=== PATIENT | female | born 1955 | race Caucasian/White ===

== ENCOUNTER → 2020-11-03 | Outpatient (CLI) | payer MEDICARE, MEDICAID ==
[~2020-11-03] MED LIST: RT-ALBUTEROL SULF 2.5 MG/3 ML PRE-MIX VIAL INH ONE
--- NOTE | 2020-11-03 10:44 | Diagnostic Imaging Report ---
INDICATION: CHRONIC OBSTRUCTIVE LUNG DISEASE. TECHNIQUE: Two view chest 9:58 AM CORRELATION STUDY: None FINDINGS: The heart size, mediastinal configuration and pulmonary vasculature are within normal limits. Lung machado are hyperinflated with hyperlucency at the lung apices. Flattening of the diaphragms increased retrosternal dimension. Mildly prominent interstitial markings, however, no consolidating infiltrate. Slightly accentuated thoracic kyphosis with degenerative changes of the thoracic spine. IMPRESSION: 1. COPD. Negative for acute cardiopulmonary abnormality. Dictated by: Dictated on workstation # [id number]
== END ==
LOC: RT 09:30
PROVIDERS: ATTEND Nurse Practitioner Family
DX: J44.9 Chronic obstructive pulmonary disease, unspecified (principal)
CPT/HCPCS: 71046; 94060; 94726; 94729

== ENCOUNTER → 2020-12-08 | Outpatient (CLI) | payer MEDICARE, MEDICAID ==
--- NOTE | 2020-12-08 15:35 | Diagnostic Imaging Report ---
Procedure: CT right lower extremity without contrast. Technique: Axially acquired CT was obtained through the right lower extremity without intravenous contrast. Coronal and sagittal reformations were also performed. Auto Exposure Controls were utilized during the CT exam to meet ALARA standards for radiation dose reduction. Date: December 08, 2020. Indication: 65-year-old female, right hip pain. Comparison: None. Findings: The right hip is not dislocated. There is no joint space loss of the right hip, osteophyte formation, or subchondral cystic change. There is no acute fracture. There is no identified bone lesion. The right sacroiliac joint is unremarkable in appearance. There are at least right facet degenerative changes at L4-L5 and L5-S1. There are atherosclerotic calcifications. Impression: 1. Unremarkable appearance of the right hip joint. 2. No identified acute bony abnormality. 3. At least right-sided facet degenerative changes present at L4-L5 and L5-S1. Dictated by: Dictated on workstation # [id number]
== END ==
LOC: RAD 14:45
PROVIDERS: ATTEND Family Medicine
DX: M47.816 Spondylosis without myelopathy or radiculopathy, lumbar region (principal); M47.817 Spondylosis without myelopathy or radiculopathy, lumbosacral region
CPT/HCPCS: 73700

== ENCOUNTER 2022-01-25 05:39 | Outpatient (CLI) | payer MEDICARE, MEDICAID ==
[~2022-01-25] VITALS: Ht 172.7 cm; Wt 112.9 kg
[2022-01-27] MEDS ORDERED: PANT20TA18 PO (09:31)
[2022-01-27] MEDS ORDERED: FLUO40CA PO (09:31)
[2022-01-27] MEDS ORDERED: AMIT50TA3 PO (09:31)
[2022-01-27] MEDS ORDERED: FAMO20TA3 PO (09:31)
[2022-01-27] MEDS ORDERED: ACHD5005 PO (09:32)
[2022-01-27] MEDS ORDERED: OXYB5TAB13 PO (09:32)
[2022-01-27] MEDS ORDERED: RT-ALBUINH INH (09:32)
[2022-01-27] MEDS ORDERED: FLUT1BLS15 IH (09:32)
[2022-01-27] MEDS ORDERED: HYDR-700 PO (09:32)
== END 2022-01-27 09:33 | disposition home or self-care (01) ==
LOC: PREOP 05:39
PROVIDERS: ATTEND Surgery
DX: Z01.818 Encounter for other preprocedural examination (principal)

== ENCOUNTER 2022-02-01 06:58 | Day surgery (SDC) | payer MEDICARE, MEDICAID ==
[~2022-02-01] VITALS: Ht 172.7 cm; Wt 112.9 kg
[~2022-02-01 06:58] MED LIST changes: +ACHD5005 PO; +AMIT50TA3 PO; +FAMO20TA3 PO; +FLUO40CA PO; +FLUT1BLS15 IH; +HYDR-700 PO; +OXYB5TAB13 PO; +PANT20TA18 PO; +RT-ALBUINH INH; -RT-ALBUTEROL SULF 2.5 MG/3 ML PRE-MIX VIAL INH ONE
[2022-02-01] MEDS ORDERED: LACTATED RINGERS 1,000 ML IV STA (07:14)
[2022-02-01] MEDS ORDERED: HURRICAINE EXT TUBE (BENZOCAINE) XX PRN (07:15)
[2022-02-01 07:24] VITALS: BP 169/82
[2022-02-01] MEDS ORDERED: PROPOFOL INJECTION 50 ML IV ONE (07:37)
--- NOTE | 2022-02-01 09:03 | Anesthesia-General Post-Op ---
MAC Patient Condition Mental Status/LOC: Same as Preop Cardiovascular: Satisfactory Nausea/Vomiting: Absent Respiratory: Satisfactory Pain: Controlled Complications: Absent Post Op Complications Complications None Follow Up Care/Instructions Patient Instructions None needed. Anesthesiology Discharge Order Discharge Order Patient is doing well, no complaints, stable vital signs, no apparent adverse anesthesia problems. No complications reported per nursing. JUDY GUARDADO CRNA Feb 01, 2022 09:03
--- NOTE | 2022-02-01 09:07 | Discharge Inst-Simple/Standard ---
Discharge Inst-Standard Patient Instructions/Follow Up Plan of Care/Instructions/FU: See Dr. Menard in 2 weeks Activity as Tolerated: Yes Discharge Diet: Regular Diet LUTHER MENARD DO Feb 01, 2022 09:07
[2022-02-01 09:08] VITALS: BP 166/88
[2022-02-01 09:15] VITALS: BP 167/71
[2022-02-01 09:49] VITALS: BP 167/71
--- NOTE | 2022-02-01 14:00 | OPERATIVE REPORT ---
DATE OF SERVICE: 02/01/2022 PREOPERATIVE DIAGNOSIS: Gastroesophageal reflux disease. POSTOPERATIVE DIAGNOSIS: Small hiatal hernia. PROCEDURES PERFORMED: EGD with biopsy. SURGEON: Luther Menard DO. ANESTHESIA: Per RELIEF MATE. ESTIMATED BLOOD LOSS: None. COMPLICATIONS: None. INDICATIONS FOR PROCEDURE: The patient is a 66-year-old female having worsening GERD symptoms. She understands the risks and benefits of the procedure and wishes to proceed. Consent was signed in chart. DESCRIPTION OF PROCEDURE: The patient was taken to endoscopy suite and placed in the left lateral recumbent position. A timeout was performed. Scope was turned to the mouth, down the esophagus, stomach and into the duodenum without difficulty. No polyps, masses or ulcerations within the duodenum. Scope was then slowly retracted back in the stomach, where it was further insufflated. No masses or ulcerations. Small benign-appearing polyp. Very small hiatal hernia. Scope was returned to its normal position. Sludge on the distal esophagus. Biopsy of GE junction was obtained. Scope was slowly retracted back until completely removed noting no other pathology. The patient tolerated the procedure well without any complications. She was taken to recovery room in a stable condition. POSTOPERATIVE PLAN: The patient will continue on pantoprazole and famotidine as prescribed. Would consider changing area of symptoms control. We will change Protonix to 40 mg daily. Await biopsy results. The patient will follow up in two weeks. Job ID: [id number] DocumentID: [id number] Dictated Date: 02/01/2022 09:06:47 Change Control Coordinator Date: 02/01/2022 14:00:00 Dictated By: LUTHER MENARD DO
== END 2022-02-01 09:49 | disposition home or self-care (01) ==
LOC: ENDO 06:58
PROVIDERS: ATTEND Surgery
DX: K44.9 Diaphragmatic hernia without obstruction or gangrene (principal); K31.89 Other diseases of stomach and duodenum; K21.00 Gastro-esophageal reflux disease with esophagitis, without bleeding; K29.70 Gastritis, unspecified, without bleeding; Z79.899 Other long term (current) drug therapy; Z87.891 Personal history of nicotine dependence
CPT/HCPCS: 88305

== ENCOUNTER 2022-05-24 09:20 | Emergency (ER) | payer MEDICARE, MEDICAID ==
[~2022-05-24] VITALS: Ht 174 cm; Wt 111.0 kg
--- NOTE | 2022-05-24 09:58 | ED Fall/Injury ---
General Chief Complaint: Trauma-Non Activation Stated Complaint: LT HIP INJ | FALL AT HOME Nursing Triage Note: pt states fall 2 days ago, lt hip and thigh pain. denies any other pain. pt was leaning over picking stuff up and lost her balance and fell over "in slow motion." Source: patient, family Exam Limitations: no limitations History of Present Illness Date Seen by Provider: May 24, 2022 Time Seen by Provider: 09:47 Initial Comments This 66-year-old woman presents to the emergency room with primary complaint of pain in the left groin and hip area that she noticed after having a fall in her home 2 days ago. She was bending over to pick things up off the floor. She was leaning on her bed and lost her balance. She had a slow nontraumatic fall onto her hands and knees. The pain is primarily in the left groin and hip joint region but radiates to the buttock and sometimes down her leg. She has had hip arthritis and a right hip replacement has been recommended to her in the past. She has not proceeded with surgery due to her other comorbidities, namely COPD. She has suspected osteoporosis and has a pending bone density scan scheduled. Patient has been ambulatory since the fall but walking is becoming increasingly difficult. Allergies and Home Medications Allergies Coded Allergies: sulfamethoxazole (Unverified Allergy, Intermediate, Hives, 11/03/20) gabapentin (Unverified Adverse Reaction, Intermediate, 11/03/20) makes her drunk benzonatate (Unverified Adverse Reaction, Mild, 11/03/20) make her dream Patient Home Medication List Home Medication List Reviewed: Yes Albuterol Sulfate (Ventolin Hfa) 1 Puff Puff, 2 PUFF INH Q4H, (Reported) Entered as Reported by: PINO GARCIA on 01/27/22 0932 Amitriptyline HCl (Amitriptyline HCl) 50 Mg Tablet, 50 MG PO, (Reported) Entered as Reported by: PINO GARCIA on 01/27/22 0931 Cephalexin (Cephalexin) 500 Mg Tablet, 500 MG PO QID Prescribed by: DYLAN RICHARD on 05/24/22 1330 Famotidine (Acid Veneer Slicing Machine Operator (FAMOTIDINE)) 20 Mg Tablet, 20 MG PO BID, (Reported) Entered as Reported by: PINO GARCIA on 01/27/22 0931 Fluoxetine HCl (Fluoxetine HCl) 40 Mg Capsule, 40 MG PO, (Reported) Entered as Reported by: PINO GARCIA on 01/27/22930 Fluticasone/Umeclidin/Vilanter (Trelegy Ellipta 200-62.5-25) 200-62.5 Blst.w.dev, 1 EACH IH, (Reported) Entered as Reported by: PINO GARCIA on 01/27/22931 Hydrocodone/Acetaminophen (Hydrocodone-Acetamin 5-325 mg) 5 Mg-325 Mg Tablet, 1 TAB PO Q4H PRN for PAIN-MODERATE (5-7), (Reported) Entered as Reported by: PINO GARCIA on 01/27/22931 Hydroxyzine HCl (Hydroxyzine HCl) 25 Mg Tablet, 25 MG PO, (Reported) Entered as Reported by: PINO GARCIA on 01/27/22931 Oxybutynin Chloride (Oxybutynin Chloride) 5 Mg Tablet, 5 MG PO, (Reported) Entered as Reported by: PINO GARCIA on 01/27/22931 Oxycodone HCl/Acetaminophen (Percocet 5-325 mg Tablet) 1 Each Tablet, 1 TAB PO Q4H PRN for PAIN BREAKTROUGH Prescribed by: DYLAN RICHARD on 05/24/22 1342 Pantoprazole Sodium (Pantoprazole Sodium) 20 Mg Tablet.dr, 20 MG PO DAILY, (Reported) Entered as Reported by: PINO GARCIA on 01/27/22930 Prednisone (Prednisone) 20 Mg Tab, 40 MG PO DAILY Prescribed by: DYLAN RICHARD on 05/24/22 1330 Valacyclovir HCl (Valacyclovir) 1,000 Mg Tablet, 1,000 MG PO TID Prescribed by: DYLAN RICHARD on 05/24/22 1343 Review of Systems Review of Systems Constitutional: no symptoms reported Eyes: No Symptoms Reported Ears, Nose, Mouth, Throat: no symptoms reported Respiratory: no symptoms reported Cardiovascular: no symptoms reported Gastrointestinal: no symptoms reported Genitourinary: no symptoms reported Musculoskeletal: see HPI Skin: no symptoms reported Psychiatric/Neurological: No Symptoms Reported Past Zwcdsqq-Gozyut-Lrldgc Hx Patient Social History Tobacco Use?: Yes Smoking Status: Former Smoker Substance use?: No Alcohol Use?: No Immunizations Up To Date First/Initial COVID19 Vaccinat: YES Second COVID19 Vaccination Peter: YES Third COVID19 Vaccination Date: 2ND BOOSTER Seasonal Allergies Seasonal Allergies: No Past Medical History Surgery/Hospitalization HX: copd, asthma, bronchitis, home O2, kelsie, tubal ligation Surgeries: Yes Gallbladder, Tubal Ligation Respiratory: Yes COPD Cardiac: No 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 oz. kg; 36.00 BMI Method: General Appearance: WD/WN, no apparent distress, obese HEENT: normal ENT inspection Neck: normal inspection Cardiovascular: regular rate, rhythm, no edema, no murmur Respiratory: no respiratory distress, no accessory muscle use, wheezing Gastrointestinal: non tender, soft Extremities: normal inspection, other (Tenderness in the right groin over the hip joint. No significant pain with rotation of the hip. No significant pain with palpation of other areas of the extremity. Patient indicates the pain does radiate into the lumbar region during exam. 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 II-XII nml as tested, alert, normal mood/affect, oriented x 3 Skin: normal color, warm/dry Progress/Results/Core Measures Results/Orders My Orders Orders - DYLAN MURRY MD Pelvis With Left Hip 2-3 Views (05/24/22 09:56) Hydrocodone/Apap 5/325 Tablet (Lortab 5 (05/24/22 11:00) Ct Lumbar Spine Wo (05/24/22 11:17) Ct Pelvis Wo (05/24/22 11:17) Albuterol Inhaler (Albuterol) (05/24/22 11:18) Oxycodone/Apap 5/325mg Tablet (Percocet (05/24/22 13:30) Medications Given in ED Vital Signs/I&O 05/24/22 05/24/22 05/24/22 05/24/22 09:24 11:01 13:26 13:56 Temp 36.2 36.2 36.2 36.2 Pulse 107 107 Resp 22 20 B/P (MAP) 165/115 (132) 150/105 Pulse Ox 93 93 O2 Delivery Nasal Cannula Nasal Cannula O2 Flow Rate 3.00 3.00 3.00 Blood Pressure Mean: 132 Progress Progress Note : Progress Note Patient was treated with hydrocodone. X-rays of the left hip and pelvis were obtained. No fractures were identified. These images were reviewed and interpreted by me. No fractures or dislocations were appreciated. Radiologist's report was also reviewed and noted no acute bony injury. Since there is no explanation for the patient's pain, CT was offered for further evaluation. Patient requested to proceed with CT scan as she desired a definitive answer regarding any bony injuries. She was also noted to be wheezing and was given an albuterol inhaler as she was missing her home breath ing treatments while being in the ER. CT imaging revealed no acute injuries. Patient later described in more detail a radicular type pain that shoots all the way down her leg. This brought into question lumbar radiculopathy from lumbar disc disease or neuroforaminal stenosis or possibly a sciatica or piriformis syndrome. We discussed possibly using steroids which she requested to pursue. Prescriptions were provided. Percocet was given for further pain control before discharge. Patient had a unusual patchy raised erythematous rash on the anterior left thigh. It was neither painful nor itchy. There was a lymph node noted in the left groin on CT scan. This raises the question of developing cellulitis versus shingles. Patient was provided a prescription of antibiotics and valacyclovir to take should this rash worsen or become painful. Diagnostic Imaging Diagonstic Imaging: Xray Plain Films/CT/US/NM/MRI: pelvis, hip Comments NAME: FAWAD JOSE [facility] REC#: [id number] PT STATUS: REG ER : 1955 PHYSICIAN: DYLAN MURRY MD ADMIT DATE: 05/24/22/ER Signed Date of Exam:05/24/22 PELVIS WITH LEFT HIP 2-3 VIEWS PELVIS WITH LEFT HIP 2-3 VIEWS INDICATION: Left hip pain COMPARISON: None available. TECHNIQUE: AP pelvis with AP and lateral views of the hip. FINDINGS: No acute fracture about the left hip. No displaced fracture within the pelvis. Moderate osteoarthritis of right hip. No degenerative structural changes about the left hip. No abnormal soft tissue mineralization. IMPRESSION: No acute osseous abnormality about the left hip. Dictated by: Dictated on workstation # [id number] Dict: 05/24/22 1017 Trans: 05/24/22 1138 KAYLI [id number] Interpreted by: MOIZ LEWIS MD Electronically signed by: MOIZ LEWIS MD 05/24/22 1138 Diagonstic Imaging: CT Plain Films/CT/US/NM/MRI: other (Lumbar spine) Comments NAME: FAWAD JOSE [employer] REC#: [id number] PT STATUS: REG ER : 1955 PHYSICIAN: DYLAN MURRY MD ADMIT DATE: 05/24/22/ER Signed Date of Exam:05/24/22 PELVIS WITH LEFT HIP 2-3 VIEWS PELVIS WITH LEFT HIP 2-3 VIEWS INDICATION: Left hip pain COMPARISON: None available. TECHNIQUE: AP pelvis with AP and lateral views of the hip. FINDINGS: No acute fracture about the left hip. No displaced fracture within the pelvis. Moderate osteoarthritis of right hip. No degenerative structural changes about the left hip. No abnormal soft tissue mineralization. IMPRESSION: No acute osseous abnormality about the left hip. Dictated by: Dictated on workstation # [id number] Dict: 05/24/22 1017 Trans: 05/24/22 1138 KAYLI [id number] Interpreted by: MOIZ LEWIS MD Electronically signed by: MOIZ LEWIS MD 05/24/22 1138 Diagonstic Imaging: CT Plain Films/CT/US/NM/MRI: pelvis Comments NAME: FAWAD JOSE [employer] REC#: [id number] PT STATUS: REG ER : 1955 PHYSICIAN: DYLAN MURRY MD ADMIT DATE: 05/24/22/ER Signed Date of Exam:05/24/22 CT PELVIS WO PROCEDURE: CT pelvis without contrast. TECHNIQUE: Multiple contiguous axial images were obtained through the pelvis without the use of intravenous contrast. Sagittal and coronal reformations were performed. Auto Exposure Controls were utilized during the CT exam to meet ALARA standards for radiation dose reduction. INDICATION: Fall. Pelvic pain. Left hip pain. COMPARISON: None. FINDINGS: No acute fracture or dislocation in the pelvis and bilateral hips. Alignment is anatomic. No focal osseous lesions are seen. No evidence of joint effusion. The included pelvis is unremarkable. The included loops of bowel are nondistended. Nonspecific mildly prominent lymph nodes are seen in the left inguinal region. IMPRESSION: 1. No acute fracture or dislocation in the pelvis and bilateral hips. 2. Nonspecific mildly prominent lymph nodes in the left inguinal region. These are favored to be reactive. Dictated by: Dictated on workstation # [id number] Dict: 05/24/22 1157 Trans: 05/24/22 1205 [id number] [id number] Interpreted by: CANDICE VINCENT DO Electronically signed by: CANDICE VINCENT DO 05/24/22 1205 Departure Impression Primary Impression: Fall on same level Qualified Codes: W18.30XA - Fall on same level, unspecified, initial encou nter Additional Impressions: Left hip pain Rash Radiculopathy Qualified Codes: M54.10 - Radiculopathy, site unspecified COPD (chronic obstructive pulmonary disease) Qualified Codes: J44.9 - Chronic obstructive pulmonary disease, unspecified Disposition: 01 HOME, SELF-CARE Condition: Improved Departure-Patient Inst. Decision time for Depature: 13:22 Referrals: KAIDEN RECIO MD (PCP/Family) Primary Care Physician Patient Instructions: Radiculopathy, Hip Pain Add. Discharge Instructions: The cause of your hip pain is likely related to problems with nerve impingement at your lower back. Use prednisone as prescribed to help reduce inflammation that causes nerve impingement. Take prednisone early in the day to avoid sleep disturbance and with food or milk to avoid stomach upset. Use Percocet as prescribed for pain not controlled by ibuprofen. Use ibuprofen up to 600 mg every 6 hours as needed for primary pain control. Take Percocet with caution as it may cause drowsiness. Do not drive, operate machinery, or make important decisions while on Percocet. Percocet may also cause constipation, so you may wish to use a stool softener such as Colace while taking it. Follow-up with your primary care provider as soon as possible. The cause of your rash is uncertain. If it becomes painful or is rapidly spr eading, start the antibiotics and antivirals as prescribed. Return to care if you have worsening symptoms, especially if you develop numbness of the groin, loss of muscle strength in your legs, problems controlling bowel or bladder function, or escalating pain not responsive to the medications. All discharge instructions reviewed with patient and/or family. Voiced understanding. Scripts Valacyclovir HCl (Valacyclovir) 1,000 Mg Tablet 1000 MG PO TID, #21 TAB Prov: DYLAN MURRY MD 05/24/22 Oxycodone HCl/Acetaminophen (Percocet 5-325 mg Tablet) 1 Each Tablet 1 TAB PO Q4H PRN for PAIN BREAKTROUGH MDD 6 TABS, #10 TAB Prov: DYLAN MURRY MD 05/24/22 Prednisone (Prednisone) 20 Mg Tab 40 MG PO DAILY, #8 TAB 0 Refills Prov: DYLAN MURRY MD 05/24/22 Cephalexin (Cephalexin) 500 Mg Tablet 500 MG PO QID, #28 TAB Prov: DYLAN MURRY MD 05/24/22 Copy Copies To 1: KAIDEN RECIO MD, JOSHUA T MD May 24, 2022 09:57
--- NOTE | 2022-05-24 10:21 | Diagnostic Imaging Report ---
PELVIS WITH LEFT HIP 2-3 VIEWS INDICATION: Left hip pain COMPARISON: None available. TECHNIQUE: AP pelvis with AP and lateral views of the hip. FINDINGS: No acute fracture about the left hip. No displaced fracture within the pelvis. Moderate osteoarthritis of right hip. No degenerative structural changes about the left hip. No abnormal soft tissue mineralization. IMPRESSION: No acute osseous abnormality about the left hip. Dictated by: Dictated on workstation # [id number]
[2022-05-24] MEDS ORDERED: HYDROcodone/APAP 5 MG/325 MG (LORTAB) TAB PO ONE (11:00)
[2022-05-24] MEDS ORDERED: RT-ALBUTEROL HFA 8.5 GM INHALER IH STA (11:18)
--- NOTE | 2022-05-24 11:59 | Diagnostic Imaging Report ---
PROCEDURE: CT lumbar spine without contrast. TECHNIQUE: Multiple contiguous axial images were obtained through the lumbar spine without the use of intravenous contrast. Sagittal and coronal reformations were then performed. Auto Exposure Controls were utilized during the CT exam to meet ALARA standards for radiation dose reduction. INDICATION: Fall. Back pain. COMPARISON: None. FINDINGS: No acute fracture or dislocation in the lumbar spine. There is grade 1 anterolisthesis of L4-L5. No suspicious focal osseous lesions are seen. Vertebral body heights are well-maintained. No evidence of acute spinal canal stenosis. No high density material is within the spinal canal. The paraspinal soft tissues are unremarkable. IMPRESSION: 1. No acute fracture or dislocation in the lumbar spine. 2. Grade 1 anterolisthesis of L4 on L5. Dictated by: Dictated on workstation # [id number]
--- NOTE | 2022-05-24 12:05 | Diagnostic Imaging Report ---
PROCEDURE: CT pelvis without contrast. TECHNIQUE: Multiple contiguous axial images were obtained through the pelvis without the use of intravenous contrast. Sagittal and coronal reformations were performed. Auto Exposure Controls were utilized during the CT exam to meet ALARA standards for radiation dose reduction. INDICATION: Fall. Pelvic pain. Left hip pain. COMPARISON: None. FINDINGS: No acute fracture or dislocation in the pelvis and bilateral hips. Alignment is anatomic. No focal osseous lesions are seen. No evidence of joint effusion. The included pelvis is unremarkable. The included loops of bowel are nondistended. Nonspecific mildly prominent lymph nodes are seen in the left inguinal region. IMPRESSION: 1. No acute fracture or dislocation in the pelvis and bilateral hips. 2. Nonspecific mildly prominent lymph nodes in the left inguinal region. These are favored to be reactive. Dictated by: Dictated on workstation # [id number]
[2022-05-24] MEDS ORDERED: OXYC1TAB87 PO ×5 (13:30→13:41)
[2022-05-24] MEDS ORDERED: CEPH500T PO (13:30)
[2022-05-24] MEDS ORDERED: oxyCODONE/APAP 5/325MG (PERCOCET 5) TABLET PO ONE (13:30)
[2022-05-24] MEDS ORDERED: PRD20T PO (13:30)
[2022-05-24] MEDS ORDERED: OXYC-199 PO (13:31)
[2022-05-24] MEDS ORDERED: OXYC1TAB11 PO (13:34)
[2022-05-24] MEDS ORDERED: VALA10007 PO (13:43)
[2022-05-24 13:56] VITALS: BP 150/105
== END 2022-05-24 13:54 | disposition home or self-care (01) ==
LOC: EDUNIT# 09:20 → ER 09:22
DX: M25.552 Pain in left hip (principal); M54.10 Radiculopathy, site unspecified; R21 Rash and other nonspecific skin eruption; J44.9 Chronic obstructive pulmonary disease, unspecified; Z99.81 Dependence on supplemental oxygen; Z87.891 Personal history of nicotine dependence; Z88.2 Allergy status to sulfonamides; W01.0XXA Fall on same level from slipping, tripping and stumbling without subsequent striking against object, initial encounter; Y92.009 Unspecified place in unspecified non-institutional (private) residence as the place of occurrence of the external cause
CPT/HCPCS: 72131; 72192

== ENCOUNTER → 2022-05-31 | Outpatient (CLI) | payer MEDICARE, MEDICAID ==
[~2022-05-31] MED LIST changes: +CEPH500T PO; +OXYC-199 PO; +OXYC1TAB11 PO; +OXYC1TAB87 PO; +PRD20T PO; +VALA10007 PO
--- NOTE | 2022-05-31 09:41 | Diagnostic Imaging Report ---
INDICATION: 66-year-old asymptomatic postmenopausal female COMPARISON: None available FINDINGS: AP Spine L1-L4: [BMD (g/cm2): 1.108] [T-Score: -0.8] [Z-Score: -0.3] [BMD Previous: na] [BMD % Change: na] LT Hip Neck: [BMD (g/cm2): 0.794] [T-Score: -1.8] [Z-Score: -0.9] LT Hip Total: [BMD (g/cm2):0.856] [T-Score:-1.2] [Z-Score: -0.7] [BMD Previous: na] [BMD % Change: na] RT Hip Neck: [BMD (g/cm2):0.892] [T-Score:-1.1] [Z-Score:-0.2] RT Hip Total: [BMD (g/cm2):0.863] [T-score:-1.1] [Z-Score:-0.6] [BMD Previous:na] [BMD % Change:na] *Indicates significant change from prior examination based on 95% confidence level. World Health Organization criteria for BMD interpretation classify patients as Normal (T-score at or above -1.0), Osteopenic (T-score between -1.0 and -2.5) or Osteoporotic (T-score at or below -2.5). LIMITATIONS AND MODIFICATION: None. FRACTURE RISK (FRAX SCORE): The ten year probability of (%): Major Osteoporotic Fracture: [9.6] Hip Fracture: [1.4] IMPRESSION: 1. Osteopenia (Low bone mass). 2. Baseline examination. 3. See below National Osteoporosis Foundation guidelines on when to potentially initiate pharmacologic therapy. Based on the National Osteoporosis Foundation Guidelines, pharmacologic treatment should be initiated in any of the following, unless clinical conditions suggest otherwise: * Any patient with prior fragility fracture of the hip or vertebrae. A spine fracture indicates 5X risk for subsequent spine fracture and 2X risk for subsequent hip fracture. * Osteoporosis (T-score <-2.5). * Postmenopausal women and men age 50 and older with low bone mass/osteopenia (T-score between -1.0 and -2.5) by DXA and 10-year major osteoporotic fracture greater than 20% or a 10-year probability of hip fracture greater than 3%. These fracture risks are supplied above in the FRAX score, if applicable. * Clinician judgement and/or patient preferences may indicate treatment for people with 10-year fracture probabilities above or below these levels. Dictated by: Dictated on workstation # [id number]
== END ==
LOC: RAD 08:05
PROVIDERS: ATTEND Family Medicine
DX: M16.11 Unilateral primary osteoarthritis, right hip (principal); M85.80 Other specified disorders of bone density and structure, unspecified site; Z78.0 Asymptomatic menopausal state
CPT/HCPCS: 77080

== ENCOUNTER 2022-06-09 13:11 | Observation (INO) | payer MEDICARE, MEDICAID ==
[~2022-06-09] VITALS: Ht 172.7 cm; Wt 111.0 kg
--- NOTE | 2022-06-09 13:19 | ED Fall/Injury ---
General Chief Complaint: Trauma-Non Activation Stated Complaint: FALL History of Present Illness Date Seen by Provider: Jun 09, 2022 Time Seen by Provider: 13:19 Initial Comments Patient is a 66-year-old female who presents to the emergency department after a fall at home. Patient was on her porch and she states her left leg "just gave out". She was unable to stand up, they called EMS and the patient was transported here. Patient states she was able to crawl "a little bit at a time" into her front living room. She states "my knees are pretty banged up". She denies any significant pain. She did not hit her head, no loss of consciousness. She denies neck, chest, abdomen pain. She states her left leg feels a little bit more "numb" than her right. She has recently had a course of shingles over the last 2 weeks. She had come home from her primary care physician's office just prior to the fall. She saw Dr. Recio. Patient denies any shortness of breath or chest pain. No nausea, vomiting or diarrhea. No urinary complaints. She has not had breakfast or lunch yet this afternoon. She states ever since the rash started on her left hip, buttock and leg the leg has felt not quite right. Occurred: just prior to arrival Severity: mild Injuries/Pain Location: lower extremity (knees) Loss of Consciousness: no loss of consciousness Associated Symptoms (Fall): Denies Symptoms Allergies and Home Medications Allergies Coded Allergies: sulfamethoxazole (Unverified Allergy, Intermediate, Hives, 11/03/20) gabapentin (Unverified Adverse Reaction, Intermediate, 11/03/20) makes her drunk benzonatate (Unverified Adverse Reaction, Mild, 11/03/20) make her dream Patient Home Medication List Home Medication List Reviewed: Yes Albuterol Sulfate (Ventolin Hfa) 1 Puff Puff, 2 PUFF INH Q4H PRN for SHORTNESS OF BREATH, (Reported) Entered as Reported by: PINO GARCIA on 01/27/22931 Last Action: Reviewed Amitriptyline HCl (Amitriptyline HCl) 50 Mg Tablet, 50 MG PO HS, (Reported) Entered as Reported by: PINO GARCIA on 01/27/22930 Last Action: Reviewed Famotidine (Acid Shipyard Painting Supervisor (FAMOTIDINE)) 20 Mg Tablet, 20 MG PO HS, (Reported) Entered as Reported by: PINO GARCIA on 01/27/22930 Last Action: Reviewed Fluoxetine HCl (Fluoxetine HCl) 40 Mg Capsule, 40 MG PO DAILY, (Reported) Entered as Reported by: PINO GARCIA on 01/27/22930 Last Action: Reviewed Fluticasone/Umeclidin/Vilanter (Trelegy Ellipta 200-62.5-25) 200-62.5 B lst.w.dev, 1 EACH IH DAILY, (Reported) Entered as Reported by: PINO GARCIA on 01/27/22931 Last Action: Reviewed Guaifenesin (Mucinex) 600 Mg Tab.er.12h, 600 MG PO HS, (Reported) Entered as Reported by: JENNIFER MCCLURE on 06/10/221224 Last Action: Reviewed Hydroxyzine HCl (Hydroxyzine HCl) 25 Mg Tablet, 50 MG PO HS, (Reported) Entered as Reported by: PINO GARCIA on 01/27/22931 Last Action: Reviewed Ipratropium/Albuterol Sulfate (Iprat-Albut 0.5-3(2.5) mg/3 ml) 0.5 Mg-3 Mg (2.5 Mg Base)/3 Ml Ampul.neb, 2.5 MG NEB Q6H PRN for SHORTNESS OF BREATH, (Reported) Entered as Reported by: JENNIFER MCCLURE on 06/10/221223 Last Action: Reviewed Mirabegron (Myrbetriq) 25 Mg Tab.er.24h, 25 MG PO 1500, (Reported) Entered as Reported by: JENNIFER MCCLURE on 06/10/221223 Last Action: Reviewed Oxybutynin Chloride (Oxybutynin Chloride) 5 Mg Tablet, 5 MG PO BID, (Reported) Entered as Reported by: PINO GARCIA on 01/27/22931 Last Action: Reviewed Oxycodone HCl/Acetaminophen (Oxycodon-Acetaminophen 7.5-325) 7.5 Mg-325 Mg Tablet, 1 EA PO TID PRN for PAIN-MODERATE (5-7), (Reported) Entered as Reported by: JENNIFER MCCLURE on 06/10/221224 Last Action: Reviewed Pantoprazole Sodium (Pantoprazole Sodium) 20 Mg Tablet.dr, 20 MG PO DAILY, (Reported) Entered as Reported by: PINO GARCIA on 01/27/22 0931 Last Action: Reviewed Pregabalin (Lyrica) 50 Mg Capsule, 50 MG PO BID Prescribed by: MICHAEL MUKHERJEE on 06/10/22 1244 Discontinued Medications Cephalexin (Cephalexin) 500 Mg Tablet, 500 MG PO QID Prescribed by: DYLAN RICHARD on 05/24/22 1330 Last Action: Discontinued Hydrocodone/Acetaminophen (Hydrocodone-Acetamin 5-325 mg) 5 Mg-325 Mg Tablet, 1 TAB PO Q4H PRN for PAIN-MODERATE (5-7), (Reported) Entered as Reported by: PINO GARCIA on 01/27/22 0932 Last Action: Discontinued Oxycodone HCl/Acetaminophen (Percocet 5-325 mg Tablet) 1 Each Tablet, 1 TAB PO Q4H PRN for PAIN BREAKTROUGH Prescribed by: DYLAN RICHARD on 05/24/22 1342 Last Action: Discontinued Prednisone (Prednisone) 20 Mg Tab, 40 MG PO DAILY Prescribed by: DYLAN RICHARD on 05/24/22 1330 Last Action: Discontinued Valacyclovir HCl (Valacyclovir) 1,000 Mg Tablet, 1,000 MG PO TID Prescribed by: DYLAN RICHARD on 05/24/22 1343 Last Action: Discontinued Review of Systems Review of Systems Constitutional: see HPI Eyes: No Symptoms Reported Ears, Nose, Mouth, Throat: no symptoms reported Respiratory: no symptoms reported Cardiovascular: no symptoms reported Gastrointestinal: no symptoms reported Genitourinary: no symptoms reported Musculoskeletal: no symptoms reported Skin: other (abrasions to knees) Psychiatric/Neurological: Other (generalized weakness) Past Lfzxcgk-Brxjdw-Rtxift Hx Immunizations Up To Date First/Initial COVID19 Vaccinat: YES Second COVID19 Vaccination Peter: YES Third COVID19 Vaccination Date: 2ND BOOSTER Seasonal Allergies Seasonal Allergies: No Past Medical History Surgery/Hospitalization HX: copd, asthma, bronchitis, home O2, kelsie, tubal ligation Surgeries: Yes Gallbladder, Tubal Ligation Respiratory: Yes COPD Cardiac: No Neurological: No MEDIA COORDINATOR History: Tubal Ligation Genitourinary: Yes (INCONTINENCE) Gastrointestinal: Yes Gastroesophageal Reflux Musculoskeletal: Yes Arthritis Endocrine: No HEENT: No Cancer: No Psychosocial: No Integumentary: No Blood Disorders: No Physical Exam Vital Signs Vital Signs - First Documented 06/09/22 13:14 Temp 36.5 Pulse 112 Resp 20 B/P (MAP) 135/85 (102) Pulse Ox 97 O2 Delivery Nasal Cannula O2 Flow Rate 3.00 Capillary Refill : Height, Weight, BMI Height: '" Weight: lbs. oz. kg; 36.00 BMI Method: General Appearance: WD/WN, no apparent distress HEENT: PERRL/EOMI Neck: non-tender, full range of motion Cardiovascular: regular rate, rhythm, tachycardia (111) Respiratory: lungs clear, normal breath sounds, no respiratory distress, no accessory muscle use Gastrointestinal: non tender, soft Back: normal inspection Extremities: normal inspection, no pedal edema, other (hip flexor weakness bilaterally L>R; normal plantar flexion and dorsiflexion of the great toes bilaterally (good strength) no sensory deficit upper extremities; no facial droop; ) Neurologic/Psychiatric: alert, normal mood/affect, oriented x 3 Skin: normal color, warm/dry, other (mild abrasion left anterior knee. no ecchymoses or swelling) Progress/Results/Core Measures Results/Orders Lab Results Laboratory Tests Test 06/09/22 13:25 06/09/22 15:17 Range/Units White Blood Count 16.9 H 4.3-11.0 10^3/uL Red Blood Count 4.72 3.80-5.11 10^6/uL Hemoglobin 13.9 11.5-16.0 g/dL Hematocrit 42 35-52 % Mean Corpuscular Volume 90 80-99 fL Mean Corpuscular Hemoglobin 29 25-34 pg Mean Corpuscular Hemoglobin Concent 33 32-36 g/dL Red Cell Distribution Width 14.9 H 10.0-14.5 % Platelet Count 162 130-400 10^3/uL Mean Platelet Volume 11.2 9.0-12.2 fL Immature Granulocyte % (Auto) 0 % Neutrophils (%) (Auto) 79 H 42-75 % Lymphocytes (%) (Auto) 10 L 12-44 % Monocytes (%) (Auto) 10 0-12 % Eosinophils (%) (Auto) 1 0-10 % Basophils (%) (Auto) 0 0-10 % Neutrophils # (Auto) 13.4 H 1.8-7.8 10^3/uL Lymphocytes # (Auto) 1.6 1.0-4.0 10^3/uL Monocytes # (Auto) 1.6 H 0.0-1.0 10^3/uL Eosinophils # (Auto) 0.1 0.0-0.3 10^3/uL Basophils # (Auto) 0.1 0.0-0.1 10^3/uL Immature Granulocyte # (Auto) 0.1 0.0-0.1 10^3/uL Neutrophils % (Manual) 83 % Lymphocytes % (Manual) 8 % Monocytes % (Manual) 7 % Eosinophils % (Manual) 1 % Basophils % (Manual) 1 % Band Neutrophils 0 % Blood Morphology Comment NORMAL Sodium Level 133 L 135-145 MMOL/L Potassium Level 4.9 3.6-5.0 MMOL/L Chloride Level 101 98-107 MMOL/L Carbon Dioxide Level 20 L 21-32 MMOL/L Anion Gap 12 5-14 MMOL/L Blood Urea Nitrogen 12 7-18 MG/DL Creatinine 0.79 0.60-1.30 MG/DL Estimat Glomerular Filtration Rate 81 BUN/Creatinine Ratio 15 Glucose Level 130 H 70-105 MG/DL Calcium Level 8.8 8.5-10.1 MG/DL Urine Color YELLOW Urine Clarity CLEAR Urine pH 6.0 5-9 Urine Specific [place] 1.015 L 1.016-1.022 Urine Protein 1+ H NEGATIVE Urine Glucose (UA) NEGATIVE NEGATIVE Urine Ketones NEGATIVE NEGATIVE Urine Nitrite NEGATIVE NEGATIVE Urine Bilirubin NEGATIVE NEGATIVE Urine Urobilinogen 0.2 < = 1.0 MG/DL Urine Leukocyte Esterase NEGATIVE NEGATIVE Urine RBC (Auto) NEGATIVE NEGATIVE Urine RBC 2-5 H /HPF Urine WBC NONE /HPF Urine Squamous Epithelial Cells NONE /HPF Urine Crystals PRESENT H /LPF Urine Amorphous Sediment RARE JOSE DAVID URATES H /LPF Urine Bacteria TRACE /HPF Urine Casts PRESENT /LPF Urine Hyaline Casts 5-10 H /LPF Urine Mucus LARGE H /LPF Urine Culture Indicated NO My Orders Orders - DANTE DAVILA MD Ed Iv/Invasive Line Start (06/09/22 13:30) Cbc With Automated Diff (06/09/22 13:30) Basic Metabolic Panel (06/09/22 13:30) Ua Culture If Indicated (06/09/22 13:30) Ns Iv 500 Ml (Sodium Chloride 0.9%) (06/09/22 13:30) Manual Differential (06/09/22 13:25) Oxycodone/Apap 7.5/325mg Tab (Percocet (06/09/22 15:00) Fentanyl Inj (Sublimaze Injection) (06/09/22 15:15) Ed Admission (Communication) (06/09/22 16:05) Medications Given in ED Vital Signs/I&O 06/09/22 06/09/22 13:14 13:20 Temp 36.5 Pulse 112 Resp 20 B/P (MAP) 135/85 (102) Pulse Ox 97 O2 Delivery Nasal Cannula Nasal Cannula O2 Flow Rate 3.00 3.00 06/10/22 00:00 Intake Total 500 ml Balance 500 ml Progress Progress Note : Progress Note Patient seen and evaluated by me. Evaluation includes physical exam, CBC, basic metabolic panel, urinalysis. Pertinent physical exam well-developed well- nourished morbidly obese female, no acute distress. Mild abrasions to her bilateral knees. Heart is regular lungs are clear, abdomen is soft. She has good bilateral lower extremity strength as far as dorsiflexion and plantarflexion of the feet. She is able to flex her hips bilaterally with good strength. She is unable to straight leg raise with the left leg due to weakness. Patient states subjective decrease in sensation on the left leg. No incontinence. No other concerns for neurologic dysfunction. She has what appears to be a dermatomal healing rash from the gluteal apex across the left buttock wrapping around the left leg to the left knee. This appears consistent with healing shingles. No open or draining/cellulitic wounds. Differential diagnosis includes neuropathic pain and weakness secondary to shingles, radiculopathy secondary to nerve root compression, stroke, generalized weakness. Labs independently reviewed by me. CBC demonstrates leukocytosis with a total white blood cell count of 16.9 with 79% neutrophils. Basic metabolic panel, CO2 of 20, sodium of 133, glucose of 130 otherwise normal. Urinalysis shows microscopic hematuria, trace bacteria. This was an in and out cath specimen. Patient was treated in the emergency department with a 500 cc normal saline bolus, Percocet and a small dose of fentanyl. Consideration that the patient is just generally deconditioned after fighting shingles for the last 2 weeks. After pain medication she is still unable to get up to the bedside and stand without assistance. She would be a great risk at home for fall. I do not suspect acute radiculopathy. I do not suspect acute stroke. Her would like for her to be admitted if possible. I discussed the case with Dr. Mukherjee, hospitalist on [facility], she will be admitted to the hospital observation medical floor Departure Communication (Admissions) Time/Spoke to Admitting Phy: 15:[address] Mukherjee ([facility] Hospitalist) accepts admission observation Impression Primary Impression: Generalized weakness Additional Impression: Lumbosacral radiculopathy due to herpes zoster Disposition: ADMITTED INPATIENT Condition: Stable Admissions Decision to Admit Reason: Admit from ER (General) Decision to Admit/Date: Jun 09, 2022 Time/Decision to Admit Time: 15:45 Departure-Patient Inst. Referrals: KAIDEN RECIO MD (PCP/Family) Primary Care Physician Scripts Pregabalin (Lyrica) 50 Mg Capsule 50 MG PO BID, #60 CAP Prov: MICHAEL MUKHERJEE DO 06/10/22 DANTE DAVILA MD Jun 09, 2022 13:19
[2022-06-09] MEDS ORDERED: NS IV 500 ML 500 ML IV STA (13:30)
[2022-06-09 13:36] LABS: BASOPHILS # (AUTO) 0.1 10^3/uL (0.0-0.1); BASOPHILS % (AUTO) 0 % (0-10); EOSINOPHILS # (AUTO) 0.1 10^3/uL (0.0-0.3); EOSINOPHILS % (AUTO) 1 % (0-10); HEMATOCRIT 42 % (35-52); HEMOGLOBIN 13.9 g/dL (11.5-16.0); LYMPHOCYTES # (AUTO) 1.6 10^3/uL (1.0-4.0); LYMPHOCYTES % (AUTO) 10 % (12-44); MEAN CORPUSCULAR HEMOGLOBIN 29 pg (25-34); MEAN CORPUSCULAR HGB CONC 33 g/dL (32-36); MEAN CORPUSCULAR VOLUME 90 fL (80-99); MEAN PLATELET VOLUME 11.2 fL (9.0-12.2); MONOCYTES # (AUTO) 1.6 10^3/uL (0.0-1.0); MONOCYTES % (AUTO) 10 % (0-12); NEUTROPHILS # (AUTO) 13.4 10^3/uL (1.8-7.8); NEUTROPHILS % (AUTO) 79 % (42-75); PLATELET COUNT 162 10^3/uL (130-400); WHITE BLOOD COUNT 16.9 10^3/uL (4.3-11.0)
[2022-06-09 13:52] LABS: CALCIUM 8.8 MG/DL (8.5-10.1)
[2022-06-09 13:55] LABS: BAND NEUTROPHILS 0 %; LYMPHOCYTES % (MANUAL) 8 %; NEUTROPHILS % (MANUAL) 83 %
[2022-06-09 13:56] LABS: CREATININE SERUM 0.79 MG/DL (0.60-1.30); MONOCYTES % (MANUAL) 7 %; POTASSIUM 4.9 MMOL/L (3.6-5.0)
[2022-06-09 13:57] LABS: BASOPHILS % (MANUAL) 1 %; EOSINOPHILS % (MANUAL) 1 %; RBC MORPH NORMAL
[2022-06-09] MEDS ORDERED: oxyCODONE/APAP 7.5-325 MG (PERCOCET 7.5) TABLET PO ONE (15:00)
[2022-06-09] MEDS ORDERED: fentaNYL INJ 100 MCG/2 ML AMP IVP ONE (15:15)
[2022-06-09 15:23] LABS: BILIRUBIN,URINE NEGATIVE (NEGATIVE); CLARITY,URINE CLEAR; COLOR,URINE YELLOW; GLUCOSE, URINE (UA) NEGATIVE (NEGATIVE); KETONES,URINE NEGATIVE (NEGATIVE); LEUKOCYTE ESTERASE ,URINE NEGATIVE (NEGATIVE); NITRITE,URINE NEGATIVE (NEGATIVE); PROTEIN,URINE 1+ (NEGATIVE)
[2022-06-09 15:36] LABS: AMORPHOUS SEDIMENT,UR RARE AMOR URATES /LPF; BACTERIA,URINE TRACE /HPF
[2022-06-09] MEDS ORDERED: HYDROmorphone 2 MG/ML VIAL (DILAUDID) IV PRN (16:30)
[2022-06-09] MEDS ORDERED: CALCIUM CARBONATE 500 MG (TUMS) TAB.CHEW PO PRN (16:30)
[2022-06-09] MEDS ORDERED: ENOXAPARIN 40 MG/0.4 ML (LOVENOX) SYR SC SCH (16:30)
[2022-06-09] MEDS ORDERED: MELATONIN 3 MG TABLET PO PRN (16:30)
[2022-06-09] MEDS ORDERED: ONDANSETRON 4 MG/2 ML (SDV) Z0FRAN IV PRN (16:30)
[2022-06-09] MEDS ORDERED: ONDANSETRON 4 MG (ZOFRAN) ORAL DISSOLVE TAB PO PRN (16:30)
[2022-06-09] MEDS ORDERED: MILK OF MAGNESIA 400 MG/5 ML 30 ML UDC PO PRN (16:30)
[2022-06-09] MEDS ORDERED: polyethylene glycoL POWDER 17 GM (MIRALAX) PACK PO PRN (16:30)
[2022-06-09] MEDS ORDERED: LACTULOSE SYRUP 10GM/15ML (ENULOSE) 30ML UDC PO PRN (16:30)
[2022-06-09] MEDS ORDERED: ANTACID SUSP 30 ML UDC (MYLANTA) PO PRN (16:30)
[2022-06-09] MEDS ORDERED: diphenhydrAMINE 25 MG TAB (BENADRYL) PO PRN (16:30)
[2022-06-09] MEDS ORDERED: diphenhydrAMINE 50 MG/ML INJ (BENADRYL) IVP PRN (16:30)
[2022-06-09] MEDS ORDERED: BISACODYL 10 MG SUPP (DULCOLAX) PR PRN (16:30)
[2022-06-09] MEDS ORDERED: ACETAMINOPHEN 325 MG TABLET PO PRN (16:30)
[2022-06-09 16:46] VITALS: BP 135/85
[2022-06-09] MEDS: NS IV 1000 ML 1,000 ML IV SCH (16:46)
[2022-06-09] MEDS ORDERED: RT-ALBUTEROL SULF 2.5 MG/3 ML PRE-MIX VIAL INH PRN (17:00)
[2022-06-09 17:14] VITALS: BP 166/75
[2022-06-09 19:57] VITALS: BP 145/77
[2022-06-09] MEDS: PREGABALIN 50 MG (LYRICA) CAP PO SCH (20:07)
[2022-06-09] MEDS: SENNOSIDES 8.6 MG (SENOKOT) TAB PO SCH (20:07)
[2022-06-09] MEDS: DOCUSATE SODIUM 100 MG (COLACE) CAP PO SCH (20:08)
[2022-06-09] MEDS: RT-ALBUTEROL SULF 2.5 MG/3 ML PRE-MIX VIAL INH SCH (21:01)
[2022-06-10] VITALS: BP 132/63
[2022-06-10] MEDS: NS IV 1000 ML 1,000 ML IV SCH ×2 (00:50→08:56)
[2022-06-10 04:00] VITALS: BP 135/64
[2022-06-10 05:52] LABS: BASOPHILS # (AUTO) 0.1 10^3/uL (0.0-0.1); BASOPHILS % (AUTO) 1 % (0-10); EOSINOPHILS # (AUTO) 0.2 10^3/uL (0.0-0.3); EOSINOPHILS % (AUTO) 1 % (0-10); HEMATOCRIT 36 % (35-52); HEMOGLOBIN 11.7 g/dL (11.5-16.0); LYMPHOCYTES # (AUTO) 2.7 10^3/uL (1.0-4.0); LYMPHOCYTES % (AUTO) 23 % (12-44); MEAN CORPUSCULAR HEMOGLOBIN 30 pg (25-34); MEAN CORPUSCULAR HGB CONC 33 g/dL (32-36); MEAN CORPUSCULAR VOLUME 91 fL (80-99); MEAN PLATELET VOLUME 11.7 fL (9.0-12.2); MONOCYTES # (AUTO) 1.6 10^3/uL (0.0-1.0); MONOCYTES % (AUTO) 14 % (0-12); NEUTROPHILS # (AUTO) 7.1 10^3/uL (1.8-7.8); NEUTROPHILS % (AUTO) 61 % (42-75); PLATELET COUNT 160 10^3/uL (130-400); WHITE BLOOD COUNT 11.7 10^3/uL (4.3-11.0)
[2022-06-10 06:04] LABS: ALBUMIN 3.3 GM/DL (3.2-4.5); POTASSIUM 3.7 MMOL/L (3.6-5.0)
[2022-06-10 06:05] LABS: CALCIUM 8.1 MG/DL (8.5-10.1)
[2022-06-10 06:07] LABS: TOTAL PROTEIN 5.9 GM/DL (6.4-8.2)
[2022-06-10 06:08] LABS: BILIRUBIN,TOTAL 0.5 MG/DL (0.1-1.0)
[2022-06-10 06:10] LABS: CREATININE SERUM 0.79 MG/DL (0.60-1.30)
[2022-06-10] MEDS: RT-ALBUTEROL SULF 2.5 MG/3 ML PRE-MIX VIAL INH SCH (07:16)
[2022-06-10 08:00] VITALS: BP 146/65
[2022-06-10] MEDS: SENNOSIDES 8.6 MG (SENOKOT) TAB PO SCH (09:29)
[2022-06-10] MEDS: PREGABALIN 50 MG (LYRICA) CAP PO SCH (09:29)
[2022-06-10] MEDS: DOCUSATE SODIUM 100 MG (COLACE) CAP PO SCH (09:29)
[2022-06-10] MEDS ORDERED: SENNA W/DOCUSATE (SENOKOT S) TABLET PO NR (11:30)
[2022-06-10] MEDS ORDERED: RT-ALBUTEROL SULF 2.5 MG/3 ML PRE-MIX VIAL INH SCH ×2 (11:30→14:00)
[2022-06-10] MEDS ORDERED: LACTULOSE SYRUP 10GM/15ML (ENULOSE) 30ML UDC PO NR (11:30)
--- NOTE | 2022-06-10 12:23 | Short Stay Summary-Hospitalist ---
BHARAT HENDRICKSON 06/10/22 1223: History of Present Illness HPI/Chief Complaint This patient is a 66 year old female with medical history significant for COPD, asthma, bronchitis, and 3L O2 dependence. She presented to the EMS yesterday after having a witnessed fall at home on her front porch. She reports her left leg gave out on her and her partially caught her on her way down. She did not hit or head or have LOC. Prior to falling she was seen at Dr. Soriano'carisa to follow up on a shingles rash she had first developed 2 weeks ago and completed a course ov valacyclovir for. In the ED she was found to have bilateral weaknes in her legs, Left > right, but no numbness, ataxoa, or facial droop. CT imaging of the head was not deemed necessary based on her presenting symptoms at that time. She was tachycardic (112) on presentation and had leukocytosis 16.9. The patient reports that she is able to walk at home without a walker but has been thinking about getting one due to having a harder time. She reports significant dyspnea on exertion as well due to her breathing. When seen this morning the patient reports left leg discomfort in the affected area with rash and otherwise mild numbness throughout her left leg compared to her right. She denies LH, dizziness, CP, palpitations, abd pain, N/V/D Date Seen 06/10/22 Time Seen by a Provider: 08:45 Attending Physician Neda Soriano MD PCP Admitting Physician: Kenia Garcia DO Attending Physician: Kenia Garcia DO Referring Physician Date of Admission Jun 09, 2022 at 16:09 Home Medications & Allergies Home Medications Reviewed patient Home Medication Reconciliation performed by pharmacy medication reconciliations network control technician and/or nursing. Patients Allergies have been reviewed. Allergies Allergies Coded Allergies sulfamethoxazole (Unverified Allergy, Intermediate, Hives, 11/03/20) gabapentin (Unverified Adverse Reaction, Intermediate, 11/03/20) makes her drunk benzonatate (Unverified Adverse Reaction, Mild, 11/03/20) make her dream Past Medical/Social/Family Hx Patient Social History Tobacco Use?: No Smoking Status: Former Smoker Use of E-Cig and/or Vaping dev: No Substance use?: No Alcohol Use?: Yes Alcohol Frequency: Rarely Pt stated abuse/neglect: No Immunizations Up To Date Influenza Vaccine Up-to-Date: Yes; Up-to-Date First/Initial COVID19 Vaccinat: YES Second COVID19 Vaccination Peter: YES Current Status status: No Advance Directives: No Communicates: Verbally Primary Language: Irish Preferred Spoken Language: Irish Is interpretation needed?: No Past Medical History COPD Asthma Bronchitis Home 3L O2 dependence Family Medical History Family Hx: Father (alcoholism) Mother (COPD) Review of Systems Constitutional: No chills; weakness EENTM: No hearing loss, No vision loss Respiratory: No cough; dyspnea on exertion (chronic), short of breath (chronic) Cardiovascular: No chest pain, No palpitations Gastrointestinal: No abdominal pain, No constipation, No diarrhea, No nausea, No vomiting Genitourinary: No dysuria, No hematuria Musculoskeletal: back pain (Left lower back), other (Left leg pain in area of rash. Numbness elsewhere. ) Skin: rash (Left buttocks and left inner thigh) Psychiatric/Neurological: No Symptoms Reported Physical Exam Physical Exam Vital Signs Vital Signs - First Documented 06/09/22 06/09/22 13:14 16:46 Temp 36.5 Pulse 112 Resp 20 B/P (MAP) 135/85 (102) Pulse Ox 97 O2 Delivery Nasal Cannula O2 Flow Rate 3.00 FiO2 32 Capillary Refill : Less Than 3 Seconds Height, Weight, BMI Height: '" Weight: lbs. oz. kg; 37.21 BMI Method: General Appearance: No Apparent Distress, WD/WN Eyes: Bilateral Eye Normal Inspection, Bilateral Eye EOMI HEENT: Pharynx Normal, Moist Mucous Membranes Respiratory: Chest Non Tender, Lungs Clear, Normal Breath Sounds, No Accessory Muscle Use Cardiovascular: Regular Rate, Rhythm, No Murmur, Normal Peripheral Pulses Gastrointestinal: Normal Bowel Sounds, Non Tender, Soft Back: Normal Inspection, No CVA Tenderness Extremity: Normal Capillary Refill, Normal Range of Motion, No Pedal Edema, Ot her (red, scabbed over vesicular rash on left buttocks and inner thigh. 4+ motor strength legs bilaterally. Left slightly worse than right. UE strength normal. ) Neurologic/Psychiatric: Alert, Oriented x3, Sensory Deficit (some reported numbness diffusely throughout left leg ) Skin: Rash Lymphatic: No Adenopathy Results Results/Procedures Labs Laboratory Tests 06/09/22 13:25 06/10/22 05:43 Patient resulted labs reviewed. Short Stay Diagnosis Discharge Diagnosis-Short Stay Admission Diagnosis Lumbosacral Radiculopathy due to Herpes Zoster Debility COPD Asthma Final Discharge Diagnosis Lumbosacral Radiculopathy due to Herpes Zoster Debility COPD Asthma Conclusion Plan Recent Fall Lumbosacral radiculopathy due to herpes zoster -Thought to be due to herpes zoster given symptoms affecting LLE only with no UE or facial abnormalities and the presence of a shingles like rash on LLE. She has no peripheral swelling and appears to have good blood flow to her left leg on exam. S/P Valacyclovir treatment course. Will control pain with Pregabalin. Debility -Pt. has baseline debility due to Sever COPD with O2 dependency. PT/OT to assess mobility/safety and work on strengthening exercises. COPD -Nebulizer breathing treatments. Supplemental oxygen as needed. KENIA GARCIA DO 06/10/22 1654: Supervisory-Addendum Brief Verification & Attestation Participated in pt care: history, MDM, physical Personally performed: exam, history, MDM, supervision of care Care discussed with: Medical Student Procedures: n/a Results interpretation: Verified all documentation Verification and Attestation of Medical Student E/M Service A medical student performed and documented this service in my presence. I reviewed and verified all information documented by the medical student and made modifications to such information, when appropriate. I personally performed the physical exam and medical decision making. Kenia Garcia, Jun 10, 2022,16:54 BHARAT HENDRICKSON Jun 10, 2022 12:23 KENIA GARCIA DO Jun 10, 2022 16:54
[2022-06-10] MEDS ORDERED: MIRA25TA PO (12:24)
[2022-06-10] MEDS ORDERED: IPRA3AMP31 NEB (12:24)
[2022-06-10] MEDS ORDERED: GUAI600T43 PO (12:25)
[2022-06-10] MEDS ORDERED: OXYC1TAB15 PO (12:25)
[2022-06-10] MEDS ORDERED: PREG50CA2 PO (12:43)
--- NOTE | 2022-06-10 12:45 | D/C HH Face to Face Order ---
D/C HH Face to Face Orders Reconcile Patient Problems Problems Reviewed?: Yes Instructions for Patient HH Patient Instructions/FollowUp: PCP 1 week Physician to follow Patient: [facility] Discharge Diet for Home: No Restrictions Patient Problems: Debility Shingles Patient Data-Allergies,Ht & Wt Patient Allergies: Coded Allergies: sulfamethoxazole (Unverified Allergy, Intermediate, Hives, 11/03/20) gabapentin (Unverified Adverse Reaction, Intermediate, 11/03/20) makes her drunk benzonatate (Unverified Adverse Reaction, Mild, 11/03/20) make her dream Home Health Need/Face to Face Date of Face to Face: Jun 10, 2022 Clinical Findings: Generalized weakness and fatigue, Instability, Muscle weakness I have seen Pt [id number]: Yes Discharged To: Home Diagnosis/Conditions: Debility Patient is Homebound due to: Abigail fall risk due to instabilty, Muscle weakness Homebound Status Due to the above stated illness, injury or surgical procedure (medical condition or diagnosis) and associated clinical findings, the patient is homebound because of his/her inability to leave home except with aid of a supportive device and/or person AND leaving the home requires a considerable and taxing effort or is medically contraindicated. Pt req the following assistanc: Walker Home Health Nursing Orders Home Health Services Order: Nursing Services, Road Advisor-Evaluate & Treat, Physical Therapy-Evaluate & Treat Home Health Infusion Therapy Line Start Date: Jun 09, 2022 Certify Stmt I certify that this patient is under my care and that I, a nurse practitioner or a physician; a biology research assistant working with me, had a face to face encounter that - meets the physician face to face encounter requirements with this patient as dated. MICHAEL MUKHERJEE DO Jun 10, 2022 12:45
[2022-06-10 12:55] VITALS: BP 139/65
--- NOTE | 2022-06-10 13:38 | Physical Therapy Evaluation ---
PT Evaluation-General Medical Diagnosis Admission Date Jun 09, 2022 at 16:09 Medical Diagnosis: generalized weakness Onset Date: Jun 09, 2022 Therapy Diagnosis Therapy Diagnosis: debility/weakness Precautions Precautions/Isolations: Standard Precautions Referral Physician: Jose Reason for Referral: Evaluation/Treatment Medical History Pertinent Medical History: COPD (O2 dependent) Current History EMS secondary to fall Reviewed History: Yes Social History Home: Single Level Current Living Status: Spouse Entry Into Home: Stairs With Railing PT Steps Into Home: 3 Prior Prior Level of Function SCALE: Activities may be completed with or without assistive devices. 5-Alechscuol-ftqcqar completes the activity by him/herself with no assistance from a helper. 5-Set-up or Clean-up Assistance-helper sets up or cleans up; patient completes activity. [place] assists only prior to or following the activity. 4-Supervision or Touching Assistance-helper provides verbal cues and/or touching/steadying and/or contact guard assistance as patient completes activity. Assistance may be provided throughout the activity or intermittently. 3-Partial/Moderate Assistance-helper does LESS THAN HALF the effort. [place] lifts, holds or supports trunk or limbs, but provides less than half the effort. 2-Substantial/Maximal Assistance-helper does MORE THAN HALF the effort. [place] lifts or holds trunk or limbs and provides more than half the effort. 8-Ktekzdmbx-scayaz does ALL the effort. Patient does none of the effort to complete the activity. Or, the assistance of 2 or more helpers is required for the patient to complete the activity. If activity was not attempted, code reason: 7-Patient Refused. 9-Not Applicable-not attempted and the patient did not perform the activity before the current illness, exacerbation or injury. 10-Not Attempted due to Environmental Limitations-(lack of equipment, weather restraints, etc.). 88-Not Attempted due to Medical Conditions or Safety Concerns. Bed Mobility: 6 Transfers (B,C,W/C): 6 Gait: 6 Stairs: 6 Indoor Mobility (Ambulation): Independent Stairs: Independent Prior Devices Use: None PT Evaluation-Current Subjective Patient agrees to PT. Objective Patient Orientation: Normal For Age Attachments: Oxygen, IV ROM/Strength ROM Lower Extremities bilateral LE WFL Strength Lower Extremities 3/5 grossly bilateral LE all planes Integumentary/Posture Bowel Incontinence: No Bladder Incontinence: No Posture WFL Neuromuscular (Tone, Coordination, Reflexes) grossly intact Sensory Vision: Functional Hearing: Functional Transfers Lying to Sitting/Side of Bed(Q: 4 Sit to Stand (QC): 4 Chair/Bkf-ey-Lsgvd Xfer(QC): 4 Gait Mode of Locomotion: Walk Anticipated Mode of Locomotion: Walk Walk 10 feet (QC): 4 Walk 50 ft with 2 Turns(QC): 4 Walk 150 ft (QC): 4 Distance: 250' Gait Assistive Device: FWW Comments/Gait Description FWW for energy conservation Balance Sitting Static: Normal Sitting Dynamic: Normal Standing Static: Normal Standing Dynamic: Normal Assessment/Needs Patient will be seen short term by skilled PT to address functional strength and mobility to improve current LOF to return to home at maximum LOF safely. Rehab Potential: Fair PT Records Management Analyst Goals Senior Living Goals PT Records Management Analyst Goals Time Frame: Jun 18, 2022 Roll Left & Right (QC): 6 Sit to Lying (QC): 6 Lying-Sitting on Side/Bed(QC): 6 Sit to Stand (QC): 6 Chair/Qls-uz-Zmnli Xfer(QC): 6 Toilet Transfer (QC): 6 Walk 10 feet (QC): 6 Walk 50ft with 2 Turns (QC): 6 Walk 150 ft (QC): 6 PT Plan Problem List Problem List: Activity Tolerance, Functional Strength Treatment/Plan Treatment Plan: Continue Plan of Care Treatment Plan: Education, Functional Activity Shawna, Functional Strength, Gait, Safety, Therapeutic Exercise, Transfers Treatment Duration: Jun 18, 2022 Frequency: 6 times per week Estimated Hrs Per Day: .25 hour per day Time Time In: 1300 Time Out: 1310 DATE: Jun 10, 2022 Total Billed Treatment Time: 10 [facility] Jun 10, 2022 13:38
--- NOTE | 2022-06-10 13:40 | Occupational Therapy Eval ---
OT Evaluation-General/PLF Medical Diagnosis Admission Date Jun 09, 2022 at 16:09 Medical Diagnosis: lumbar sacral pain Onset Date: Jun 09, 2022 Therapy Diagnosis Therapy Diagnosis: weakness, low endurance Precautions Precautions/Isolations: Standard Precautions Weight Bear Status Weight Bearing Restriction: Full Weight Bearing Referral Referral Reason: Evaluation/Treatment Medical History Additional Medical History 66 year old female with medical history significant for COPD, asthma, bronchitis, and 3L O2 dependence. She presented to the EMS yesterday after having a witnessed fall at home on her front porch. She reports her left leg gave out on her and her partially caught her on her way down. She did not hit or head or have LOC. Prior to falling she was seen at Dr. Soriano'carisa to follow up on a shingles rash she had first developed 2 weeks ago and completed a course ov valacyclovir for. In the ED she was found to have bilateral weaknes in her legs, Left > right, but no numbness, [place], or facial droop. CT imaging of the head was not deemed necessary based on her presenting symptoms at that time. She was tachycardic (112) on presentation and had leukocytosis 16.9. The patient reports that she is able to walk at home without a walker but has been thinking about getting one due to having a harder time. She reports significant dyspnea on exertion as well due to her breathing. When seen this morning the patient reports left leg discomfort in the affected area with rash and otherwise mild numbness throughout her left leg compared to her right. She denies LH, dizziness, CP, palpitations, abd pain, N/V/D Reviewed History: Yes Social History Home: Single Level Current Living Status: Spouse ADL-Prior Level of Function SCALE: Activities may be completed with or without assistive devices. 9-Bpfullmpvs-ufgjvji completes the activity by him/herself with no assistance from a helper. 5-Set-up or Clean-up Assistance-helper sets up or cleans up; patient completes activity. [place] assists only prior to or following the activity. 4-Supervision or Touching Assistance-helper provides verbal cues and/or touching/steadying and/or contact guard assistance as patient completes activity. Assistance may be provided throughout the activity or intermittently. 3-Partial/Moderate Assistance-helper does LESS THAN HALF the effort. [place] lifts, holds or supports trunk or limbs, but provides less than half the effort. 2-Substantial/Maximal Assistance-helper does MORE THAN HALF the effort. [place] lifts or holds trunk or limbs and provides more than half the effort. 5-Bpsqgdasl-jyaezv does ALL the effort. Patient does none of the effort to complete the activity. Or, the assistance of 2 or more helpers is required for the patient to complete the activity. If activity was not attempted, code reason: 7-Patient Refused. 9-Not Applicable-not attempted and the patient did not perform the activity before the current illness, exacerbation or injury. 10-Not Attempted due to Environmental Limitations-(lack of equipment, weather restraints, etc.). 88-Not Attempted due to Medical Conditions or Safety Concerns. Self Care: Independent Functional Cognition: Independent Drive Self: Yes OT Current Status Subjective Up reclined in bed, agreeable to OT Mental Status/Objective Patient Orientation: Person, Place, Time, Situation Attachments: IV, Oxygen Current Glasses/Contacts: Yes Upper Extremity ROM BUE ROM WFLs Upper Extremity Coordination WFLs Upper Extremity Strength -4/5 BUE grossly ADL-Treatment Eating (QC): 6 Oral Hygiene (QC): 6 Shower/Bathe Self (QC): 7 Upper Body Dressing (QC): 6 Lower Body Dressing (QC): 6 On/Off Footwear (QC): 6 Toileting Hygiene (QC): 6 Education OT Patient Education: Correct positioning, Energy conservation, Modified ADL techniques, Progress toward Goal/Update tx plan, Purpose of tx/functional activities, Reviewed precautions, Rehab process, Safety issues, Transfer techniques, Use of adapted equipment Teaching Recipient: Patient Teaching Methods: Demonstration, Discussion Response to Teaching: Return Demonstration OT Group Home Goals Phototypesetting Equipment Monitor Goals 1=Demonstrate adherence to instructed precautions during ADL tasks. 2=Patient will verbalize/demonstrate understanding of assistive devices/modifications for ADL. 3=Patient will improve strength/tolerance for activity to enable patient to perform ADL's. OT Education/Plan Problem List/Assessment Assessment: Decreased Activ Tolerance, Impaired I ADL's Discharge Recommendations Plan/Recommendations: Discontinue OT Therapy Discharge Recommendati: Home & Family Treatment Plan/Plan of Care Treatment,Training & Education: Yes Patient would benefit from OT for education, treatment and training to promote independence in ADL's, mobility, safety and/or upper extremity function for ADL's. Plan of Care: OTHER (OT EVAL only) Treatment Duration: Jun 10, 2022 Frequency: 1 time per week Estimated Hrs Per Day: .25 hour per day Agreement: Yes Rehab Potential: Good Returned to chair w/ family present Time Start Time: 13:00 Stop Time: 13:10 DATE: Jun 10, 2022 Total Time Billed (hr/min): 10 Billed Treatment Time EVL 10 min KEILY MCMILLAN OT Jun 10, 2022 13:40
[2022-06-10] MEDS ORDERED: MIRABEGRON 25 MG TAB (MYRBETRIQ) PO SCH (15:00)
[2022-06-10] MEDS ORDERED: RT-ALBUTEROL SULF 2.5 MG/3 ML PRE-MIX VIAL INH PRN (16:00)
[2022-06-10 16:22] VITALS: BP 139/65
[2022-06-10] MEDS ORDERED: OXYBUTYNIN (DITROPAN) 5 MG TAB PO SCH (21:00)
[2022-06-10] MEDS ORDERED: FAMOTIDINE 20 MG (PEPCID) TABLET PO SCH ×2 (21:00)
[2022-06-11] MEDS ORDERED: PANTOPRAZOLE 20 MG TABLET (PROTONIX) PO SCH (09:00)
== END 2022-06-10 15:13 | disposition home health service (06) ==
LOC: EDUNIT# 13:11 → ER 13:12 → 4TH 16:09 → UNDOADMOB 16:09 → 4TH 16:36 → UNDODISOB 06-10 15:13
PROVIDERS: ADMIT Internal Medicine; ATTEND Internal Medicine
DX: B02.29 Other postherpetic nervous system involvement (principal); R53.81 Other malaise; J44.9 Chronic obstructive pulmonary disease, unspecified; Z99.81 Dependence on supplemental oxygen
CPT/HCPCS: 36415; 51701; 80048; 80053; 81000; 85007; 85025; 85027; 94640; 94664; 94760; 96361; 96372; 96375; G0378